=== PATIENT | male | born 1975 | race Caucasian/White ===

== ENCOUNTER 2017-09-05 16:51 | Emergency (ER) | payer OTHER ==
--- NOTE | 2017-09-05 16:55 | PDOC ---
Rapid Medical Evaluation Time Seen by Provider: 09/05/17 16:54 Medical Evaluation: 09/05/17 16:55 Healthy 41 year old male with bodyaches, gradual onset headache, and fevers/ chills today. T 102.7 (last Tylenol 8am) -Rapid flu -To FT for further evaluation
[2017-09-05 16:59] VITALS: BP 123/75; BMI 32.3
[2017-09-05] MEDS ORDERED: IBUPROFEN 600 MG TABLET (FP) PO ONE (16:59)
--- NOTE | 2017-09-05 18:31 | PDOC ---
History of Present Illness - General Chief Complaint: Headache Stated Complaint: HEADACHE Time Seen by Provider: 09/05/17 16:54 History Source: Patient - History of Present Illness Timing/Duration: reports: this morning Associated Symptoms: reports: fever/chills, headache, muscle aches. denies: chest pain/soreness, cough, earache, facial pain, nasal congestion, nasal drainage, shortness of breath, sore throat, wheezing Past History - Past Medical History Allergies/Adverse Reactions: Allergies Allergy/AdvReac Type Severity Reaction Status Date / Time No Known Allergies Allergy Verified 09/05/17 16:55 Home Medications: Ambulatory Orders NK [No Known Home Medication] 09/05/17 - Suicide/Smoking/Psychosocial Hx Smoking History: Never smoked Review of Systems - Review of Systems Constitutional: Yes: Fever, Malaise HEENTM: No: Ear Pain, Throat Pain Respiratory: No: Cough ABD/GI: No: Diarrhea, Nausea, Vomiting Musculoskeletal: No: Neck Pain Neurological: Yes: Headache. No: Dizziness *Physical Exam - Vital Signs Last Vital Signs Temp Pulse Resp BP Pulse Ox 102.7 F H 100 H 20 123/75 98 09/05/17 16:55 09/05/17 16:55 09/05/17 16:55 09/05/17 16:55 09/05/17 16:55 - Physical Exam General Appearance: Yes: Appropriately Dressed. No: Apparent Distress HEENT: positive: Normal ENT Inspection, Normal Voice. negative: Scleral Icterus (R), Scleral Icterus (L) Neck: positive: Supple. negative: Lymphadenopathy (R), Lymphadenopathy (L) Respiratory/Chest: positive: Lungs Clear, Normal Breath Sounds. negative: Respiratory Distress Integumentary: positive: Dry, Warm Neurologic: positive: Fully Oriented, Alert, Normal Mood/Affect ED Treatment Course - ADDITIONAL ORDERS Additional order review: 09/05/17 17:03 Influenza Types A,B Antigen ([facility]) - Preliminary Nasopharyngeal Swab - Preliminary - Medications Given in the ED: ED Medications Discontinued Medications Generic Name Dose Route Start Last Admin Trade Name Freq PRN Reason Stop Dose Admin Ibuprofen 600 mg 09/05/17 16:59 09/05/17 17:00 Motrin - PO 09/05/17 17:00 600 mg ONCE ONE Administration Medical Decision Making - Medical Decision Making 09/05/17 18:29 41-year-old male, no significant history, presents with headache, body aches and fever this a.m. No cough, sore throat, ear pain, shortness of breath, nausea, vomiting, diarrhea or rash. No known sick contacts or recent travel. Patient appears uncomfortable with fever and tachycardia in ED, exam otherwise unremarkable. Most likely viral syndrome. Flu sent from triage and negative. Vitals improved with meds. Discharge with supportive treatment *DC/Admit/Observation/Transfer Diagnosis at time of Disposition: Viral syndrome - Discharge Dispostion Disposition: HOME Condition at time of disposition: Improved - Referrals Referrals: Tarun Mathias MD [Primary Care Provider] - - Patient Instructions Printed Discharge Instructions: DI for Viral Syndrome Additional Instructions: You have a viral illness but not the flu. Rest, maintain adequate hydration and take Tylenol or Motrin for pain and/or fever - Post Discharge Activity Forms/Work/School Notes: Back to Work
[2017-09-05 18:41] VITALS: TEMP 98.3
[2017-09-05 18:44] VITALS: PULSE 90
== END 2017-09-05 19:18 | disposition home or self-care (01) ==
LOC: JERFT 16:51
DX: B34.9 Viral infection, unspecified (principal)
CPT/HCPCS: 87804; 99281-25